=== PATIENT | male | born 1990 | race Caucasian/White ===

== ENCOUNTER 2016-11-16 01:03 | Emergency (ER) | payer SELFPAY ==
[~2016-11-16] VITALS: Ht 177.8 cm; Wt 106.0 kg
[~2016-11-16 01:03] MED LIST: D-ME118S13 PO
[2016-11-16 01:32] LABS: BASOPHILS % (AUTO) 0.2 % (0.0-2.0); EOSINOPHILS % (AUTO) 0.8 % (1.0-6.0); HEMATOCRIT 43.2 % (41-53); HEMOGLOBIN 14.7 g/dL (13.5-17.5); LYMPHOCYTES # (AUTO) 1.9 K/uL (1.0-4.8); LYMPHOCYTES % (AUTO) 15.6 % (22.0-44.0); MEAN CORPUSCULAR HEMOGLOBIN 31.2 pg (26.0-34.0); MEAN CORPUSCULAR HGB CONC 33.9 G/dL (31.0-37.0); MEAN CORPUSCULAR VOLUME 92 fL (80-100); MONOCYTES # (AUTO) 1.1 K/uL (0.1-1.0); MONOCYTES % (AUTO) 9.1 % (2.0-9.0); NEUTROPHILS # (AUTO) 8.9 K/uL (1.8-7.7); NEUTROPHILS % (AUTO) 74.3 % (40.0-70.0); PLATELET COUNT (AUTO) 293 K/uL (150-450); RED CELL DISTRIBUTION WIDTH 13.4 % (11.5-14.5)
[2016-11-16 01:40] LABS: ANION GAP 9 mmol/L (8-16); CALCIUM, TOTAL 8.8 mg/dL (8.8-10.5); CARBON DIOXIDE 28 mmol/L (22-29); CHLORIDE 104 mmol/L (98-107); CREATININE 1.25 mg/dL (0.60-1.30); GLOMERULAR FILTR. RATE CALC > 60 mL/min (>60); POTASSIUM 3.5 mmol/L (3.5-5.1); SODIUM SERUM 141 mmol/L (136-145); UREA NITROGEN, BLOOD 15 mg/dL (7-18)
[2016-11-16 01:46] LABS: ALANINE AMINOTRANSFERASE 22 U/L (12-78); ALBUMIN 4.4 g/dL (3.4-5.0); ASPARTATE AMINOTRANSFERASE 23 U/L (15-37); BILIRUBIN,TOTAL 0.7 mg/dL (0.1-1.0); TOTAL PROTEIN, SERUM 7.7 g/dL (6.4-8.2)
[2016-11-16 03:36] VITALS: BP 120/93
== END 2016-11-16 03:37 | disposition home or self-care (01) ==
LOC: EMS 01:04
DX: R45.851 Suicidal ideations (principal); F17.210 Nicotine dependence, cigarettes, uncomplicated
CPT/HCPCS: 36415; 80053; 80307; 85025; 99285; G0480

== ENCOUNTER 2017-11-09 08:02 | Emergency (ER) | payer MEDICAID ==
[~2017-11-09] VITALS: Ht 180.3 cm; Wt 105.9 kg
[2017-11-09] MEDS ORDERED: RISP1 PO (08:06)
[2017-11-09 08:13] VITALS: BP 124/84
[2017-11-09] MEDS ORDERED: LOPERAMIDE HCL 2 MG CAPSULE PO ONE (08:30)
[2017-11-09 08:40] LABS: BASOPHILS % (AUTO) 0.2 % (0.0-2.0); EOSINOPHILS % (AUTO) 3.2 % (1.0-6.0); HEMATOCRIT 38.1 % (41-53); HEMOGLOBIN 12.9 g/dL (13.5-17.5); LYMPHOCYTES # (AUTO) 1.3 K/uL (1.0-4.8); LYMPHOCYTES % (AUTO) 25.7 % (22.0-44.0); MEAN CORPUSCULAR HGB CONC 33.9 G/dL (31.0-37.0); MEAN CORPUSCULAR VOLUME 89 fL (80-100); MONOCYTES # (AUTO) 0.9 K/uL (0.1-1.0); MONOCYTES % (AUTO) 18.6 % (2.0-9.0); NEUTROPHILS # (AUTO) 2.7 K/uL (1.8-7.7); NEUTROPHILS % (AUTO) 52.3 % (40.0-70.0); PLATELET COUNT (AUTO) 209 K/uL (150-450); RED CELL DISTRIBUTION WIDTH 13.7 % (11.5-14.5)
[2017-11-09 08:54] LABS: ANION GAP 8 mmol/L (8-16); CALCIUM, TOTAL 8.2 mg/dL (8.8-10.5); CARBON DIOXIDE 26 mmol/L (22-29); CHLORIDE 106 mmol/L (98-107); GLOMERULAR FILTR. RATE CALC > 60 mL/min (>60); GLUCOSE,RANDOM 100 mg/dL (70-110); POTASSIUM 3.3 mmol/L (3.5-5.1); SODIUM SERUM 140 mmol/L (136-145); UREA NITROGEN, BLOOD 12 mg/dL (7-18)
[2017-11-09 09:00] LABS: ALANINE AMINOTRANSFERASE 34 U/L (12-78); ALBUMIN 3.5 g/dL (3.4-5.0); ALKALINE PHOSPHATASE 68 U/L (46-116); ASPARTATE AMINOTRANSFERASE 17 U/L (15-37); BILIRUBIN,TOTAL 0.3 mg/dL (0.1-1.0); LIPASE 113 U/L (73-393); TOTAL PROTEIN, SERUM 6.5 g/dL (6.4-8.2)
== END 2017-11-09 09:20 | disposition home or self-care (01) ==
LOC: EMS 08:02
DX: R10.30 Lower abdominal pain, unspecified (principal); R19.7 Diarrhea, unspecified; R11.2 Nausea with vomiting, unspecified; F17.210 Nicotine dependence, cigarettes, uncomplicated
CPT/HCPCS: 99284; 99406

== ENCOUNTER 2017-11-30 08:03 | Emergency (ER) | payer MEDICAID, OTHER ==
[~2017-11-30] VITALS: Ht 180.3 cm; Wt 105.9 kg
[~2017-11-30 08:03] MED LIST changes: -D-ME118S13 PO; +RISP1 PO
[2017-11-30] MEDS ORDERED: MAG HYDROX/AL HYDROX/SIMETH ES 30 ML SUSPENSION UDCUP PO ONE (09:00)
[2017-11-30 09:10] LABS: ANION GAP 9 mmol/L (8-16); CALCIUM, TOTAL 8.6 mg/dL (8.8-10.5); CARBON DIOXIDE 27 mmol/L (22-29); CHLORIDE 105 mmol/L (98-107); CREATININE 0.88 mg/dL (0.60-1.30); GLOMERULAR FILTR. RATE CALC > 60 mL/min (>60); GLUCOSE,RANDOM 95 mg/dL (70-110); POTASSIUM 3.9 mmol/L (3.5-5.1); SODIUM SERUM 141 mmol/L (136-145); UREA NITROGEN, BLOOD 14 mg/dL (7-18)
[2017-11-30 09:11] LABS: BASOPHILS % (AUTO) 0.5 % (0.0-2.0); EOSINOPHILS % (AUTO) 2.7 % (1.0-6.0); HEMATOCRIT 40.4 % (41-53); HEMOGLOBIN 13.7 g/dL (13.5-17.5); LYMPHOCYTES # (AUTO) 1.6 K/uL (1.0-4.8); LYMPHOCYTES % (AUTO) 26.8 % (22.0-44.0); MEAN CORPUSCULAR HEMOGLOBIN 30.2 pg (26.0-34.0); MEAN CORPUSCULAR HGB CONC 33.8 G/dL (31.0-37.0); MEAN CORPUSCULAR VOLUME 89 fL (80-100); MONOCYTES # (AUTO) 0.5 K/uL (0.1-1.0); NEUTROPHILS # (AUTO) 3.5 K/uL (1.8-7.7); PLATELET COUNT (AUTO) 240 K/uL (150-450); RED BLOOD CELL COUNT(AUTO) 4.52 MIL/uL (4.50-5.90); RED CELL DISTRIBUTION WIDTH 14.3 % (11.5-14.5)
[2017-11-30 09:16] LABS: ALANINE AMINOTRANSFERASE 81 U/L (12-78); ALBUMIN 3.4 g/dL (3.4-5.0); ALKALINE PHOSPHATASE 63 U/L (46-116); ASPARTATE AMINOTRANSFERASE 40 U/L (15-37); BILIRUBIN,TOTAL 0.5 mg/dL (0.1-1.0); TOTAL PROTEIN, SERUM 6.8 g/dL (6.4-8.2)
[2017-11-30 10:02] VITALS: BP 126/71
== END 2017-11-30 10:05 | disposition home or self-care (01) ==
LOC: EMS 08:03
DX: R10.13 Epigastric pain (principal); F17.210 Nicotine dependence, cigarettes, uncomplicated; Z79.899 Other long term (current) drug therapy
CPT/HCPCS: 99284

== ENCOUNTER 2018-01-07 20:13 | Emergency (ER) | payer OTHER ==
[~2018-01-07] VITALS: Ht 180.3 cm; Wt 111.4 kg
[2018-01-07 21:22] VITALS: BP 139/84
== END 2018-01-07 21:27 | disposition home or self-care (01) ==
LOC: EMS 20:14
DX: K60.2 Anal fissure, unspecified (principal); M79.674 Pain in right toe(s); K62.5 Hemorrhage of anus and rectum; F17.210 Nicotine dependence, cigarettes, uncomplicated
CPT/HCPCS: 99283; 99406

== ENCOUNTER 2018-03-13 12:12 | Emergency (ER) | payer OTHER ==
[~2018-03-13] VITALS: Ht 180.3 cm; Wt 115.9 kg
[2018-03-13 15:40] VITALS: BP 112/62
== END 2018-03-13 16:27 | disposition home or self-care (01) ==
LOC: EMS 12:13
DX: L25.9 Unspecified contact dermatitis, unspecified cause (principal); F17.210 Nicotine dependence, cigarettes, uncomplicated

== ENCOUNTER 2018-06-04 18:33 | Emergency (ER) | payer MEDICAID, OTHER ==
[2018-06-04 19:26] VITALS: BP 112/70
== END 2018-06-04 20:47 | disposition home or self-care (01) ==
LOC: EMS 18:34
DX: M25.571 Pain in right ankle and joints of right foot (principal); F17.210 Nicotine dependence, cigarettes, uncomplicated; X50.9XXA Other and unspecified overexertion or strenuous movements or postures, initial encounter; Y93.67 Activity, basketball; Y92.89 Other specified places as the place of occurrence of the external cause; Y99.8 Other external cause status
CPT/HCPCS: 99406

== ENCOUNTER 2018-09-02 19:53 | Emergency (ER) | payer MEDICAID ==
[~2018-09-02] VITALS: Ht 185.4 cm; Wt 125.0 kg
[2018-09-02] MEDS ORDERED: RISP3 PO (20:46)
[2018-09-02] MEDS ORDERED: KETOROLAC TROMETHAMINE 30 MG/ML VIAL IM ONE (21:45)
[2018-09-02 23:14] VITALS: BP 117/73
== END 2018-09-02 23:16 | disposition home or self-care (01) ==
LOC: EMS 19:54
DX: M54.5 Low back pain (principal); F17.210 Nicotine dependence, cigarettes, uncomplicated
CPT/HCPCS: 96372; 99283; J1885

== ENCOUNTER 2019-09-17 17:49 | Emergency (ER) | payer MEDICAID ==
[~2019-09-17] VITALS: Ht 182.9 cm; Wt 123.2 kg
[~2019-09-17 17:49] MED LIST changes: -RISP1 PO; +RISP3TAB14 PO
[2019-09-17 18:59] VITALS: BP 140/80
== END 2019-09-17 19:09 | disposition home or self-care (01) ==
LOC: EMS 17:49
DX: Z03.818 Encounter for observation for suspected exposure to other biological agents ruled out (principal); R42 Dizziness and giddiness; F20.9 Schizophrenia, unspecified; F17.210 Nicotine dependence, cigarettes, uncomplicated
CPT/HCPCS: 99283; U0003

== ENCOUNTER 2020-01-23 16:25 | Emergency (ER) | payer MEDICAID ==
[~2020-01-23] VITALS: Ht 182.9 cm; Wt 127.3 kg
[~2020-01-23 16:25] MED LIST changes: -RISP3TAB14 PO; +RISP3TAB35 PO
[2020-01-23 16:28] VITALS: BP 147/72
[2020-01-23] MEDS ORDERED: IBUP-1506 PO (16:33)
== END 2020-01-23 17:14 | disposition home or self-care (01) ==
LOC: EMS 16:25
DX: M54.5 Low back pain (principal)
CPT/HCPCS: 99283; Z7502

== ENCOUNTER 2020-07-20 12:34 | Emergency (ER) | payer MEDICAID ==
[~2020-07-20] VITALS: Ht 182.9 cm; Wt 127.0 kg
[~2020-07-20 12:34] MED LIST changes: +IBUP-1506 PO; -RISP3TAB35 PO
[2020-07-20 13:43] VITALS: BP 125/77
[2020-07-20] MEDS ORDERED: BACITRACIN 0.9 GM PACKET OINTMENT TP ONE (13:45)
[2020-07-20] MEDS ORDERED: DOXYCYCLINE HYCLATE 100 MG TABLET PO ONE (13:45)
== END 2020-07-20 14:29 | disposition home or self-care (01) ==
LOC: EMS 12:39
DX: L03.317 Cellulitis of buttock (principal); F20.9 Schizophrenia, unspecified; F17.210 Nicotine dependence, cigarettes, uncomplicated
CPT/HCPCS: 99283

== ENCOUNTER 2020-08-08 17:06 | Emergency (ER) | payer MEDICAID ==
[~2020-08-08] VITALS: Ht 185.4 cm; Wt 125.0 kg
[2020-08-08 17:08] VITALS: BP 133/78
[2020-08-08] MEDS ORDERED: RISP0.5T39 PO (17:09)
== END 2020-08-08 18:46 | disposition home or self-care (01) ==
LOC: EMS 17:10
DX: M54.5 Low back pain (principal)
CPT/HCPCS: 99283; Z7502

== ENCOUNTER 2021-10-01 00:28 | Emergency (ER) | payer MEDICAID ==
[~2021-10-01] VITALS: Ht 182.9 cm; Wt 131.8 kg
[~2021-10-01 00:28] MED LIST changes: -IBUP-1506 PO; +RISP0.5T39 PO
[2021-10-01 00:47] VITALS: BP 123/85
[2021-10-01 01:25] LABS: COVID AG,FIA SOURCE NASOPHARYNGEAL
[2021-10-01] MEDS ORDERED: AMOX TR/POT CLAV 875 MG/125 MG TABLET PO ONE (01:45)
[2021-10-01 01:56] LABS: INFLUENZA TYPE A NEGATIVE FOR TYPE A (NEGATIVE); INFLUENZA TYPE B NEGATIVE FOR TYPE B (NEGATIVE)
[2021-10-01 01:57] LABS: RAPID GROUP A STREP POSITIVE (NEGATIVE)
[2021-10-01] MEDS ORDERED: AMOX1TAB16 PO (02:06)
== END 2021-10-01 02:24 | disposition home or self-care (01) ==
LOC: EMS 00:30
DX: I88.9 Nonspecific lymphadenitis, unspecified (principal); F17.210 Nicotine dependence, cigarettes, uncomplicated; Z79.899 Other long term (current) drug therapy; Z20.822 Contact with and (suspected) exposure to COVID-19
CPT/HCPCS: 87430; 87804; 99283

== ENCOUNTER 2021-11-12 21:34 | Emergency (ER) | payer MEDICAID ==
[~2021-11-12] VITALS: Ht 182.9 cm; Wt 125.0 kg
[~2021-11-12 21:34] MED LIST changes: +AMOX1TAB16 PO
[2021-11-12] MEDS ORDERED: RISP1TAB48 PO (21:44)
[2021-11-12 22:12] VITALS: BP 140/75
[2021-11-12] MEDS ORDERED: BACITRACIN 28 GM OINTMENT TP ONE (22:30)
[2021-11-12] MEDS ORDERED: PERTUSS(ACELL),DIPH,TET VAC/PF 0.5 ML SYRINGE IM. ONE (22:30)
== END 2021-11-12 22:40 | disposition home or self-care (01) ==
LOC: EMS 21:36
DX: S60.414A Abrasion of right ring finger, initial encounter (principal); F20.9 Schizophrenia, unspecified; F17.210 Nicotine dependence, cigarettes, uncomplicated; Z86.19 Personal history of other infectious and parasitic diseases; W45.0XXA Nail entering through skin, initial encounter; Y93.89 Activity, other specified; Y92.009 Unspecified place in unspecified non-institutional (private) residence as the place of occurrence of the external cause; Y99.8 Other external cause status
CPT/HCPCS: 90471; 90715; 99283

== ENCOUNTER 2021-12-17 08:37 | Emergency (ER) | payer MEDICAID ==
[~2021-12-17] VITALS: Ht 182.9 cm; Wt 131.8 kg
[~2021-12-17 08:37] MED LIST changes: -AMOX1TAB16 PO; -RISP0.5T39 PO; +RISP1TAB48 PO
[2021-12-17 09:11] LABS: COVID AG,FIA SOURCE NASOPHARYNGEAL
[2021-12-17] MEDS ORDERED: ACETAMINOPHEN 500 MG TABLET PO ONE (09:15)
[2021-12-17 09:18] LABS: APPEARANCE,URINE CLEAR (CLEAR); BILIRUBIN,URINE NEGATIVE (NEGATIVE); GLUCOSE, URINE (UA) NEGATIVE (NEGATIVE); KETONES,URINE NEGATIVE (NEGATIVE); LEUKOCYTE ESTERASE ,URINE NEGATIVE (NEGATIVE); NITRATE,URINE NEGATIVE (NEGATIVE); OCCULT BLOOD,URINE NEGATIVE (NEGATIVE); PH,URINE 5.5 (5.0-8.0); PROTEIN,URINE NEGATIVE (NEGATIVE); SPECIFIC GRAVITIY, URINE 1.025 (1.003-1.030); UROBILINOGEN,URINE <=1.0 mg/dL (<=1.0)
[2021-12-17 09:43] LABS: INFLUENZA TYPE A NEGATIVE FOR TYPE A (NEGATIVE); INFLUENZA TYPE B NEGATIVE FOR TYPE B (NEGATIVE)
[2021-12-17] MEDS ORDERED: PENICILLIN G BENZATHINE LA 1,200,000 UNITS/2 ML SYRINGE IM ONE (10:00)
[2021-12-17 10:02] VITALS: BP 119/76
== END 2021-12-17 10:25 | disposition home or self-care (01) ==
LOC: EMS 08:41
DX: J02.0 Streptococcal pharyngitis (principal); Z20.822 Contact with and (suspected) exposure to COVID-19; F20.9 Schizophrenia, unspecified; F10.20 Alcohol dependence, uncomplicated; F17.210 Nicotine dependence, cigarettes, uncomplicated; R30.0 Dysuria
CPT/HCPCS: 99283; 87426; 81003; 87430; 87804; 96372; J0561

== ENCOUNTER 2021-12-19 18:51 | Emergency (ER) | payer MEDICAID ==
[~2021-12-19] VITALS: Ht 182.9 cm; Wt 131.8 kg
[2021-12-19 18:57] VITALS: BP 140/75
== END 2021-12-19 20:39 | disposition home or self-care (01) ==
LOC: EMS 18:54
DX: S00.512A Abrasion of oral cavity, initial encounter (principal); F20.9 Schizophrenia, unspecified; F17.210 Nicotine dependence, cigarettes, uncomplicated; Z86.19 Personal history of other infectious and parasitic diseases; X58.XXXA Exposure to other specified factors, initial encounter; Y93.89 Activity, other specified; Y92.89 Other specified places as the place of occurrence of the external cause; Y99.8 Other external cause status
CPT/HCPCS: 99281; Z7502

== ENCOUNTER 2021-12-26 06:36 | Emergency (ER) | payer MEDICAID ==
[~2021-12-26] VITALS: Ht 182.9 cm; Wt 131.8 kg
[2021-12-26 08:41] VITALS: BP 112/56
== END 2021-12-26 08:45 | disposition home or self-care (01) ==
LOC: EMS 06:36
DX: S93.402A Sprain of unspecified ligament of left ankle, initial encounter (principal); F20.9 Schizophrenia, unspecified; F10.20 Alcohol dependence, uncomplicated; F17.210 Nicotine dependence, cigarettes, uncomplicated; X50.1XXA Overexertion from prolonged static or awkward postures, initial encounter; Y93.89 Activity, other specified; Y92.89 Other specified places as the place of occurrence of the external cause; Y99.8 Other external cause status
CPT/HCPCS: 99283

== ENCOUNTER 2022-04-02 14:16 | Emergency (ER) | payer MEDICAID ==
[~2022-04-02] VITALS: Ht 182.9 cm; Wt 127.3 kg
[2022-04-02 16:07] VITALS: BP 121/82
[2022-04-02 16:12] LABS: APPEARANCE,URINE CLEAR (CLEAR); BILIRUBIN,URINE NEGATIVE (NEGATIVE); GLUCOSE, URINE (UA) NEGATIVE (NEGATIVE); KETONES,URINE NEGATIVE (NEGATIVE); LEUKOCYTE ESTERASE ,URINE NEGATIVE (NEGATIVE); NITRATE,URINE NEGATIVE (NEGATIVE); OCCULT BLOOD,URINE NEGATIVE (NEGATIVE); PH,URINE 6.5 (5.0-8.0); PROTEIN,URINE TRACE mg/dL (NEGATIVE); SPECIFIC GRAVITIY, URINE 1.033 (1.003-1.030)
== END 2022-04-02 17:18 | disposition home or self-care (01) ==
LOC: EMS 14:17
DX: H61.22 Impacted cerumen, left ear (principal); R30.0 Dysuria; F20.9 Schizophrenia, unspecified; F17.210 Nicotine dependence, cigarettes, uncomplicated
CPT/HCPCS: 81003; 87491; 87591; 99283

== ENCOUNTER 2022-12-07 00:55 | Emergency (ER) | payer MEDICAID ==
[~2022-12-07] VITALS: Ht 180.3 cm; Wt 148.0 kg
[2022-12-07 00:58] VITALS: TEMP 98
[2022-12-07 01:40] VITALS: BP 127/75; PULSE 81; RESP 17
[2022-12-07] MEDS ORDERED: CORTSOL AD (01:59)
== END 2022-12-07 02:08 | disposition home or self-care (01) ==
LOC: EMS 00:56
DX: H60.501 Unspecified acute noninfective otitis externa, right ear (principal); F20.9 Schizophrenia, unspecified
CPT/HCPCS: 99283

== ENCOUNTER 2023-01-08 21:49 | Emergency (ER) | payer MEDICAID ==
[~2023-01-08] VITALS: Ht 182.9 cm; Wt 146.8 kg
[~2023-01-08 21:49] MED LIST changes: +CORTSOL AD
[2023-01-08 22:53] LABS: APPEARANCE,URINE CLEAR (CLEAR); BILIRUBIN,URINE NEGATIVE (NEGATIVE); COLOR,URINE LIGHT YELLOW (YELLOW); GLUCOSE, URINE (UA) NEGATIVE (NEGATIVE); KETONES,URINE NEGATIVE (NEGATIVE); LEUKOCYTE ESTERASE ,URINE NEGATIVE (NEGATIVE); NITRATE,URINE NEGATIVE (NEGATIVE); OCCULT BLOOD,URINE NEGATIVE (NEGATIVE); PROTEIN,URINE NEGATIVE (NEGATIVE); SPECIFIC GRAVITIY, URINE 1.028 (1.003-1.030); UROBILINOGEN,URINE <=1.0 mg/dL (<=1.0)
[2023-01-08 23:00] LABS: ALCOHOL, URINE DRUG SCREEN NEGATIVE (NEGATIVE); AMPHET/METH SCREEN,URINE NEGATIVE (NEGATIVE); BARBITURATE SCREEN, URINE NEGATIVE (NEGATIVE); BENZODIAZEPINES SCREEN,URINE NEGATIVE (NEGATIVE); CANNABINOID SCREEN,URINE NEGATIVE (NEGATIVE); COCAINE SCREEN,URINE NEGATIVE (NEGATIVE); METHADONE SCREEN, URINE NEGATIVE (NEGATIVE); OPIATE SCREEN,URINE NEGATIVE (NEGATIVE); PHENCYCLIDINE SCREEN,URINE NEGATIVE (NEGATIVE)
[2023-01-09 00:10] VITALS: BP 147/80; PULSE 71; RESP 18; TEMP 98.3
== END 2023-01-09 00:30 | disposition home or self-care (01) ==
LOC: EMS 21:50
DX: R30.0 Dysuria (principal); F20.9 Schizophrenia, unspecified
CPT/HCPCS: 80307; 81003; 87491; 87591; 99283

== ENCOUNTER 2023-01-15 15:00 | Emergency (ER) | payer MEDICAID ==
[~2023-01-15] VITALS: Ht 185.4 cm; Wt 145.4 kg
[2023-01-15 15:19] VITALS: TEMP 98.3
[2023-01-15 16:11] VITALS: BP 120/66; PULSE 88; RESP 16
[2023-01-15] MEDS ORDERED: CEPH-558 PO (16:35)
[2023-01-15] MEDS ORDERED: CORTSUSP AD (16:35)
== END 2023-01-15 16:50 | disposition home or self-care (01) ==
LOC: EMS 15:13
DX: H66.91 Otitis media, unspecified, right ear (principal); H60.91 Unspecified otitis externa, right ear; F20.9 Schizophrenia, unspecified
CPT/HCPCS: 99283

== ENCOUNTER 2023-10-10 01:23 | Emergency (ER) | payer MEDICAID ==
[~2023-10-10] VITALS: Ht 180.3 cm; Wt 145.4 kg
[~2023-10-10 01:23] MED LIST changes: +CEPH-558 PO; +CORTSUSP AD
[2023-10-10 01:43] VITALS: BP 120/74; PULSE 94; RESP 18; TEMP 98.9
[2023-10-10] MEDS: GuaiFENesin/D-METHORPHAN [SUGAR-FREE] 200-20MG/10 ML SYRUP UDCUP PO ONE (02:21)
[2023-10-10] MEDS: IBUPROFEN 600 MG TABLET PO ONE (02:21)
[2023-10-10] MEDS: ACETAMINOPHEN 500 MG TABLET PO ONE (02:22)
[2023-10-10 02:31] LABS: BASOPHILS % (AUTO) 0.2 % (0.0-2.0); EOSINOPHILS % (AUTO) 1.5 % (1.0-6.0); HEMATOCRIT 39.8 % (41-53); HEMOGLOBIN 13.1 g/dL (13.5-17.5); LYMPHOCYTES # (AUTO) 1.3 K/uL (1.0-4.8); LYMPHOCYTES % (AUTO) 14.4 % (22.0-44.0); MEAN CORPUSCULAR HEMOGLOBIN 28.3 pg (26.0-34.0); MEAN CORPUSCULAR VOLUME 86 fL (80-100); MONOCYTES # (AUTO) 0.6 K/uL (0.1-1.0); MONOCYTES % (AUTO) 6.9 % (2.0-9.0); NEUTROPHILS # (AUTO) 6.7 K/uL (1.8-7.7); PLATELET COUNT (AUTO) 327 K/uL (150-450); RED BLOOD CELL COUNT(AUTO) 4.64 MIL/uL (4.50-5.90); RED CELL DISTRIBUTION WIDTH 14.9 % (11.5-14.5); WHITE BLOOD COUNT (AUTO) 8.7 K/uL (4.5-11.0)
[2023-10-10 02:42] LABS: COVID AG,FIA SOURCE NASAL SWAB
[2023-10-10 02:44] LABS: ANION GAP 8 mmol/L (8-16); CALCIUM, TOTAL 8.3 mg/dL (8.8-10.5); CARBON DIOXIDE 29 mmol/L (22-29); CHLORIDE 102 mmol/L (98-107); CREATININE 1.28 mg/dL (0.60-1.30); GLOMERULAR FILTR. RATE CALC > 60 mL/min (>60); GLUCOSE,RANDOM 94 mg/dL (70-110); POTASSIUM 3.6 mmol/L (3.5-5.1); SODIUM SERUM 139 mmol/L (136-145); UREA NITROGEN, BLOOD 14 mg/dL (7-18)
[2023-10-10 03:21] LABS: INFLUENZA TYPE A NEGATIVE FOR TYPE A (NEGATIVE); INFLUENZA TYPE B NEGATIVE FOR TYPE B (NEGATIVE)
[2023-10-10 03:22] LABS: SARS-COV2 (COVID) ANTIGEN,FIA Negative (Negative)
[2023-10-10] MEDS ORDERED: ACET-66 PO (03:45)
[2023-10-10] MEDS ORDERED: GUAIFDM PO (03:45)
[2023-10-10] MEDS ORDERED: IBUP-1554 PO (03:45)
== END 2023-10-10 04:13 | disposition home or self-care (01) ==
LOC: EMS 01:31
DX: J06.9 Acute upper respiratory infection, unspecified (principal); F20.9 Schizophrenia, unspecified; M60.9 Myositis, unspecified; Z20.822 Contact with and (suspected) exposure to COVID-19
CPT/HCPCS: 80048; 85025; 87804; 99284

== ENCOUNTER 2023-11-02 04:16 | Emergency (ER) | payer MEDICAID ==
[~2023-11-02] VITALS: Ht 180.3 cm; Wt 165.0 kg
[~2023-11-02 04:16] MED LIST changes: +ACET-66 PO; +GUAIFDM PO; +IBUP-1554 PO
[2023-11-02 04:20] VITALS: TEMP 98.1
[2023-11-02] MEDS: IBUPROFEN 800 MG TABLET PO ONE (06:28)
[2023-11-02] MEDS ORDERED: HYDROGEN PEROXIDE 118 ML SOLUTION ONE (06:33)
[2023-11-02] MEDS: HYDROGEN PEROXIDE 118 ML SOLUTION TP ONE (07:03)
[2023-11-02] MEDS ORDERED: IBUP-1492 PO (07:38)
[2023-11-02] MEDS ORDERED: NEOMYCIN/POLYMYXIN B/HYDROCORT 10 ML OTIC SUSPENSION AD ONE (07:45)
[2023-11-02 08:06] VITALS: BP 122/88; PULSE 77; RESP 18
== END 2023-11-02 08:07 | disposition home or self-care (01) ==
LOC: EMS 04:17
DX: H61.21 Impacted cerumen, right ear (principal); H60.91 Unspecified otitis externa, right ear; F20.9 Schizophrenia, unspecified
CPT/HCPCS: 69209; 99282; Z7502; Z7610

== ENCOUNTER 2024-02-29 00:58 | Emergency (ER) | payer MEDICAID ==
[~2024-02-29] VITALS: Ht 182.9 cm; Wt 145.4 kg
[~2024-02-29 00:58] MED LIST changes: +IBUP-1492 PO
[2024-02-29 01:01] VITALS: TEMP 97.9
[2024-02-29 01:14] LABS: COVID AG,FIA SOURCE NASAL SWAB
[2024-02-29 01:39] LABS: INFLUENZA TYPE A NEGATIVE FOR TYPE A (NEGATIVE); INFLUENZA TYPE B NEGATIVE FOR TYPE B (NEGATIVE)
[2024-02-29 01:40] LABS: SARS-COV2 (COVID) ANTIGEN,FIA Negative (Negative)
[2024-02-29 01:47] VITALS: BP 126/71; PULSE 86; RESP 18; O2SAT 100
[2024-02-29] MEDS ORDERED: BENZ-227 PO (02:45)
[2024-02-29] MEDS ORDERED: AMOX500C2 PO (02:45)
[2024-02-29] MEDS: OXYMETAZOLINE HCL 0.05% 15 ML NASAL SPRAY NASAL ONE (02:52)
== END 2024-02-29 03:16 | disposition home or self-care (01) ==
LOC: EMS 00:59
DX: J06.9 Acute upper respiratory infection, unspecified (principal); F20.9 Schizophrenia, unspecified; Z20.822 Contact with and (suspected) exposure to COVID-19
CPT/HCPCS: 87804; 99283

== ENCOUNTER 2024-10-26 09:12 | Emergency (ER) | payer MEDICAID, OTHER ==
[~2024-10-26] VITALS: Ht 180.3 cm; Wt 156.8 kg
[~2024-10-26 09:12] MED LIST changes: +AMOX500C2 PO; +BENZ-227 PO
[2024-10-26 09:20] VITALS: TEMP 97.7
[2024-10-26] MEDS ORDERED: ARIP15TA27 PO (09:20)
[2024-10-26 10:40] LABS: PLATELET COUNT (AUTO) 360 K/uL (150-450); RED BLOOD CELL COUNT(AUTO) 4.68 MIL/uL (4.50-5.90); RED CELL DISTRIBUTION WIDTH 15.0 % (11.5-14.5); WHITE BLOOD COUNT (AUTO) 7.7 K/uL (4.5-11.0)
[2024-10-26 10:49] LABS: CALCIUM, TOTAL 8.6 mg/dL (8.8-10.5); CREATININE 0.90 mg/dL (0.60-1.30); GLOMERULAR FILTR. RATE CALC > 60 mL/min (>60); GLUCOSE,RANDOM 89 mg/dL (70-110); SODIUM SERUM 139 mmol/L (136-145); UREA NITROGEN, BLOOD 13 mg/dL (7-18)
[2024-10-26 12:04] VITALS: BP 136/80; PULSE 80; RESP 18; O2SAT 98
[2024-10-26] MEDS ORDERED: CLOTRIMAZOLE 1%/BETAMETH DIP 0.05% 15 GM CREAM TP ONE (12:15)
== END 2024-10-26 12:11 | disposition home or self-care (01) ==
LOC: EMS 09:12
DX: L30.9 Dermatitis, unspecified (principal); R42 Dizziness and giddiness; F20.9 Schizophrenia, unspecified; Z98.890 Other specified postprocedural states; Z79.899 Other long term (current) drug therapy
CPT/HCPCS: 80048; 85025; 93005; 99284

== ENCOUNTER 2024-11-26 20:44 | Emergency (ER) | payer OTHER ==
[~2024-11-26] VITALS: Ht 180.3 cm; Wt 154.6 kg
[~2024-11-26 20:44] MED LIST changes: -ACET-66 PO; -AMOX500C2 PO; +ARIP15TA27 PO; -BENZ-227 PO; -CEPH-558 PO; -CORTSOL AD; -CORTSUSP AD; -GUAIFDM PO; -IBUP-1492 PO; -IBUP-1554 PO; -RISP1TAB48 PO
[2024-11-26 20:49] VITALS: BP 140/91; PULSE 99; RESP 14; TEMP 97.9; O2SAT 99
== END 2024-11-27 00:33 | disposition home or self-care (01) ==
LOC: EMS 21:17
DX: S29.011A Strain of muscle and tendon of front wall of thorax, initial encounter (principal); F20.9 Schizophrenia, unspecified; Z98.890 Other specified postprocedural states; Z79.899 Other long term (current) drug therapy; X50.9XXA Other and unspecified overexertion or strenuous movements or postures, initial encounter; Y93.89 Activity, other specified; Y92.89 Other specified places as the place of occurrence of the external cause; Y99.8 Other external cause status
CPT/HCPCS: 93005; 99284; Z7502